=== PATIENT | female | born 1970 | race Caucasian/White ===

== ENCOUNTER 2017-03-20 11:27 | Emergency (ER) | payer MEDICAID ==
[~2017-03-20] VITALS: Ht 157.5 cm; Wt 84.4 kg
[2017-03-20 14:56] VITALS: BP 118/75
== END 2017-03-20 14:56 | disposition home or self-care (01) ==
LOC: ED 11:27
DX: N61.1 Abscess of the breast and nipple (principal)
CPT/HCPCS: J2001; J2270; Q0162

== ENCOUNTER 2017-03-23 17:21 | Emergency (ER) | payer MEDICAID ==
[~2017-03-23] VITALS: Ht 157.5 cm; Wt 84.4 kg
[2017-03-23 18:58] VITALS: BP 124/74
== END 2017-03-23 18:58 | disposition home or self-care (01) ==
LOC: ED 17:21
DX: Z48.00 Encounter for change or removal of nonsurgical wound dressing (principal)
CPT/HCPCS: J0696

== ENCOUNTER 2017-03-28 11:51 | Emergency (ER) | payer MEDICAID ==
[~2017-03-28] VITALS: Ht 157.5 cm; Wt 84.5 kg
[2017-03-28 12:06] VITALS: BP 118/72
== END 2017-03-28 12:43 | disposition home or self-care (01) ==
LOC: ED 11:51
DX: Z48.01 Encounter for change or removal of surgical wound dressing (principal)